=== PATIENT | female | born 1985 | race Caucasian/White ===

== ENCOUNTER 2017-03-17 06:51 | Emergency (ER) | payer BC ==
[2017-03-17] MEDS ORDERED: ONDANSETRON 4 MG ODT ONE (07:05)
[2017-03-17] MEDS ORDERED: CLONIDINE 0.1 MG TAB PO ONE (07:14)
[2017-03-17 07:19] VITALS: RESP 18; TEMP 97.6
[2017-03-17] MEDS ORDERED: APAP/HYDROCODONE 325/5 TAB PO ONE (07:20)
[2017-03-17] MEDS ORDERED: PROCHLORPERAZINE EDISYLATE 5 MG/ML SOL IM ONE (07:20)
[2017-03-17] MEDS ORDERED: ONDANSETRON 4 MG ODT BU ONE (07:23)
[2017-03-17] MEDS ORDERED: PROCHLORPERAZINE EDISYLATE 5 MG/ML SOL ONE (07:25)
[2017-03-17] MEDS ORDERED: APAP/HYDROCODONE 325/5 TAB ONE (07:25)
[2017-03-17 07:28] LABS: MEAN CORPUSCULAR HGB CONC 32.6 gm/dl (32.0-36.0)
[2017-03-17 07:36] LABS: CALCIUM 9.2 mg/dl (8.5-10.1); POTASSIUM 3.8 mMol/L (3.5-5.1)
[2017-03-17] MEDS ORDERED: LISINOPRIL 5 MG TAB PO ONE (07:49)
[2017-03-17] MEDS ORDERED: LISINOPRIL 5 MG TAB ONE (07:52)
[2017-03-17] MEDS ORDERED: METOPROLOL TARTRATE 25 MG TAB PO SCH (08:00)
[2017-03-17] MEDS ORDERED: LISINOPRIL 5 MG TAB PO SCH (08:00)
[2017-03-17 10:30] VITALS: BP 134/94; PULSE 98; O2SAT 96
== END 2017-03-17 08:57 | disposition home or self-care (01) ==
LOC: ED 06:51
DX: I10 Essential (primary) hypertension (principal); R51 Headache; R11.2 Nausea with vomiting, unspecified
CPT/HCPCS: 99283 ×4; 80048; 85027; 96372; J0780; 36415